=== PATIENT | male | born 1940 | race Caucasian/White ===

== ENCOUNTER → 2018-10-08 | Outpatient (CLI) | payer MEDICARE ==
[~2018-10-08] MED LIST: ATOR40TA71 PO; METF-446 PO; METO-408 PO
== END | disposition home or self-care (01) ==
LOC: RAH 13:33
PROVIDERS: ATTEND Physical Medicine & Rehabilitation
DX: M47.893 Other spondylosis, cervicothoracic region (principal); M48.02 Spinal stenosis, cervical region; M46.92 Unspecified inflammatory spondylopathy, cervical region; Z72.89 Other problems related to lifestyle
CPT/HCPCS: 72125